=== PATIENT | male | born 1970 | race Caucasian/White ===

== ENCOUNTER 2021-10-23 11:23 | Emergency (ER) | payer OTHER ==
[~2021-10-23] VITALS: Ht 193 cm; Wt 127.0 kg
[~2021-10-23 11:23] MED LIST: PERCOCET 5-3251 EACH PO; VENTOLIN HFA18 GM INH; WELLBUTRIN XL300 MG PO
--- NOTE | 2021-10-24 17:16 | EKG ---
[facility] [address] [facility] [place] [address] Signed Normal sinus rhythm Incomplete right bundle branch block Borderline ECG No previous ECGs available Confirmed by CARLOS TINEO MD ([id number]) on 10/24/2021 5:15:45 PM Electronically Signed By: CARLOS TINEO MD 10/24/21 1716 PATIENT NAME: MARIBELL BAPTISTE Electrocardiogram DATE OF : 68 PHYSICIAN: CARLOS TINEO MD REPORT #: [id number] REPORT IS CONFIDENTIAL AND NOT TO BE RELEASED WITHOUT AUTHORIZATION
== END 2021-10-23 16:54 | disposition home or self-care (01) ==
LOC: ED 11:23
DX: U07.1 COVID-19 (principal); Z23 Encounter for immunization; F17.200 Nicotine dependence, unspecified, uncomplicated; Z79.899 Other long term (current) drug therapy
CPT/HCPCS: 71045; 80053; 83735; 83880; 84484; 85025; 93005; 93010; 99285-25; C9803; J7030; M0243; Q0244; U0003

== ENCOUNTER 2021-12-21 06:31 | Day surgery (SDC) | payer OTHER ==
[~2021-12-21] VITALS: Ht 193 cm; Wt 132.2 kg
--- NOTE | 2021-12-21 08:14 | NUR ---
12/21/21 0814 Becka,Sierra 0809 PT ARRIVED TO PACU ON 2L VIA NC, PT WAKES AND DENIES PAIN. VSS. PT EASILY FALLS BACK TO SLEEP.
--- NOTE | 2021-12-21 09:21 | OR ---
[facility] [address] [place], [place] [address] Signed DATE OF OPERATION: 12/21/2021 SURGEON: Zeeshan Mckinney MD PREOPERATIVE DIAGNOSIS: Screening. POSTOPERATIVE DIAGNOSES: 1. Minimal to moderate sigmoid diverticulosis. 2. A 7 mm pedunculated polyp at 30 cm (snare). PROCEDURE: Colonoscopy with snare polypectomy and hot biopsy. ESTIMATED BLOOD LOSS: None. INDICATIONS: Valerio is a 51-year-old obese gentleman, who is supposed to wear CPAP mask for his sleep apnea. However, he has not worn the CPAP mask in years. He had been sent to my office for his initial screening colonoscopy. He has no lower GI complaints. There is no family history of colon cancer or polyps. In the office, I had given him a pamphlet on colonoscopy. He understands the nature of the test along with the risks including, but not limited to gas bloating, crampy abdominal pain, bleeding, perforation requiring surgery, and missed diagnosis. We also discussed the need for the IV conscious sedation. He had expressed understanding and wished to proceed. PROCEDURE NOTE: Valerio was taken into our endoscopy suite and placed in the left lateral decubitus position. He was given 5 mg of Versed and 100 mcg of fentanyl to cover the case. He was between his sleep apnea and being awake and groaning in pain. Fortunately, he was technically easy to pass the scope. His prep was overall very good. However, he really would benefit significantly from monitored anesthesia care in the future. We had done a digital rectal exam and this was unremarkable. I could just feel a little of the base of his prostate. It is a little indurated, but I did not feel any nodules. The rest of the prostate I could not feel. The adult colonoscope had been introduced and advanced up into the cecum under direct visualization of the camera. Again, he was awake and moaning through much of that, but then he would quit breathing with just small amounts of Versed and fentanyl. Fortunately, he was easy to pass the scope and his prep was good. We could easily see the appendiceal orifice and the Electronically Signed By: ZEESHAN MCKINNEY MD 12/21/21 0921 PATIENT NAME: MARIBELL BAPTISTE OPERATIVE REPORT DATE OF : 68 REPORT #: [id number] PHYSICIAN: ZEESHAN MCKINNEY MD PCP: JEANIE FORREST PA-C REPORT IS CONFIDENTIAL AND NOT TO BE RELEASED WITHOUT AUTHORIZATION [facility] [address] [place], [place] [address] Signed ileocecal valve. We slowly withdrawn the scope. We had taken pictures throughout for photodocumentation. He does have diverticula in the sigmoid colon. They were moderate in size, moderate in number, and scattered about. We found a pedunculated polyp at 30 cm. We removed it in two pieces with the help of the snare and suctioned through the scope. We then took a separate biopsy of the base of the polyp and destroyed that completely. The rectum itself was unremarkable. Upon retroflexion of the scope, he has very little in the way of internal hemorrhoid tissue. After this, the gas was suctioned out and the colonoscope removed. Valerio tolerated the procedure overall well other than what we described above. RECOMMENDATIONS: I will see Valerio back in my office in 7 to 14 days to review his results. He should undergo monitored anesthesia care for future endoscopies. Zeeshan Mckinney MD ALB/MODL /[id number] cc: MD Jeanie Guillen PA-C Copies: ZEESHAN MCKINNEY MD, CHLOE K PA-C ~ Electronically Signed By: ZEESHAN MCKINNEY MD 12/21/21 0921 PATIENT NAME: MARIBELL BAPTISTE OPERATIVE REPORT DATE OF : 68 REPORT #: [id number] PHYSICIAN: ZEESHAN MCKINNEY MD PCP: JEANIE FORREST PA-C REPORT IS CONFIDENTIAL AND NOT TO BE RELEASED WITHOUT AUTHORIZATION
--- NOTE | 2021-12-22 15:55 | PATH ---
[facility] [address] [place], [place] [address] Signed SPECIMEN(S): A COLON POLYP AT 30 CM SPECIMEN(S): B BASE OF POLYP AT 30 CM SPECIMEN SOURCE: A. COLON POLYP AT 30 CM B. BASE OF POLYP AT 30 CM CLINICAL HISTORY: Screening colonoscopy. Colon polyp, diverticulosis FINAL PATHOLOGIC DIAGNOSIS: A. Colon, 30 cm, polypectomy: - Multiple fragments of tubular adenoma. - There is no evidence of high-grade dysplasia or malignancy. B. Base of polyp, 30 cm: - No significant histopathology. - There is no evidence of neoplasia. COMMENT: Regarding specimen B, the sections from the specimen are architecturally normal without crypt distortion. There is no acute or chronic inflammation. There are no abnormal infiltrates. There is no evidence of inflammatory, hyperplastic or adenomatous polyps. TWK:emh:C2NR MICROSCOPIC EXAMINATION: Histologic sections of all submitted blocks are examined by light microscopy. These findings, together with the gross examination, support the pathologic diagnosis. GROSS DESCRIPTION: Two specimens are received in two containers labeled with "JW." A. The specimen, labeled "JW, 1," and designated on the requisition "colon polypectomy at 30 cm," is received in formalin and consists of two fragments of pink-das tissue (0.3 cm in greatest dimension). The specimen is submitted entirely in cassette (A1). B. The specimen, labeled "JW, 2, base of polyp 30 cm," and designated on the requisition "polypectomy, base of polyp at 30 cm," is received in formalin and consists of one fragment of pink-das tissue (0.3 cm in greatest dimension). The specimen is submitted entirely in cassette (B1). PATIENT NAME: MARIBELL BAPTISTE PATHOLOGY DATE OF : 68 REPORT #: [id number] PHYSICIAN: RJA REESE PCP: KHUSHBOO FORREST PA-C REPORT IS CONFIDENTIAL AND NOT TO BE RELEASED WITHOUT AUTHORIZATION [facility] [address] [place] [id number] Signed AC (under the direct supervision of a pathologist) The Gross Description was prepared using a voice recognition system. The report was reviewed for accuracy; however, sound-alike word errors, addition and/or deletions may occur. If there is any question about this report, please contact Client Services. PERFORMING LABORATORY: The technical component [place] [address] (Fusion Operator: Tonie Mace MD; CLIA# [id number]). Professional interpretation was performed by [place] [address] (Fusion Operator: Tonie Mace MD; CLIA# [id number]). Diagnostician: Gordon Evans MD Pathologist Electronically Signed 12/22/2021 Copies: ~ PATIENT NAME: MARIBELL BAPTISTE PATHOLOGY DATE OF : 68 REPORT #: [id number] PHYSICIAN: RAJ REESE PCP: KHUSHBOO FORREST PA-C REPORT IS CONFIDENTIAL AND NOT TO BE RELEASED WITHOUT AUTHORIZATION
== END 2021-12-21 09:04 | disposition home or self-care (01) ==
LOC: DS 06:31 → OPS 06:31 → DS 07:30 → OPS 07:30
PROVIDERS: ATTEND Colon & Rectal Surgery
PROC: 0DBE8ZX Excision of Large Intestine, Via Natural or Artificial Opening Endoscopic, Diagnostic (ICD-10-PCS; 2021-12-21)
PROC: 0DBE8ZX Excision of Large Intestine, Via Natural or Artificial Opening Endoscopic, Diagnostic (ICD-10-PCS; principal; 2021-12-21 07:30)
DX: Z12.11 Encounter for screening for malignant neoplasm of colon (principal); D12.6 Benign neoplasm of colon, unspecified; K63.5 Polyp of colon; G47.33 Obstructive sleep apnea (adult) (pediatric); E66.9 Obesity, unspecified; Z68.35 Body mass index [BMI] 35.0-35.9, adult; M19.90 Unspecified osteoarthritis, unspecified site; F17.210 Nicotine dependence, cigarettes, uncomplicated
CPT/HCPCS: 99153; G0500; J2250; J3010; J7121

== ENCOUNTER 2023-01-08 11:41 | Emergency (ER) | payer OTHER ==
[~2023-01-08] VITALS: Ht 193 cm; Wt 134.7 kg
--- OUTSIDE RECORDS SUMMARY | 2023-01-08 11:42 | XMS ---
PreManage Notification: MARIBELL BAPTISTE Security Special Day Class Teacher Events No recent Security Events currently on file CRITERIA MET - PDMP CARE PROVIDERS KHUSHBOO FORREST Physician [employer] Animal Caretaker Current PHONE: [phone] [place] has no Care Guidelines for this patient. EWily VISIT COUNT (12 MO.) 1 ROCÍO Rhoades TOTAL 1 NOTE: Visits indicate total known visits. ED/UCC VISIT TRACKING (12 MO.) 01/08/2023 11:[address] [facility] OR TYPE: Emergency COMPLAINT: - ABDOMINAL PAIN INPATIENT VISIT TRACKING (12 MO.) No inpatient visits to display in this time frame [email or web address]
== END 2023-01-08 16:27 | disposition home or self-care (01) ==
LOC: ED 11:41
DX: R10.31 Right lower quadrant pain (principal); I10 Essential (primary) hypertension; F17.200 Nicotine dependence, unspecified, uncomplicated; Z79.899 Other long term (current) drug therapy
CPT/HCPCS: 36415; 74177; 80053; 81003; 83690; 85025; 99284-25; Q9967

== ENCOUNTER 2024-10-22 07:17 | Emergency (ER) | payer SELFPAY ==
[~2024-10-22] VITALS: Ht 193 cm; Wt 135.4 kg
[2024-10-22] MEDS ORDERED: NORVASC10 MG PO (07:29)
[2024-10-22] MEDS ORDERED: ACETAMINOPHEN 325 MG TAB PO ONE (08:00)
[2024-10-22 08:42] LABS: INFLUENZA B NAA NEGATIVE (NEGATIVE); RESPIRATORY SYNCYTIAL VIR NAA NEGATIVE (NEGATIVE)
[2024-10-22 09:16] VITALS: BP 136/80
== END 2024-10-22 09:16 | disposition home or self-care (01) ==
LOC: ED 07:17
PROVIDERS: Emergency Medicine
DX: J06.9 Acute upper respiratory infection, unspecified (principal); I10 Essential (primary) hypertension; F17.200 Nicotine dependence, unspecified, uncomplicated; Z79.899 Other long term (current) drug therapy
CPT/HCPCS: 71045; 87502; 99285-25; A9270; U0002

== ENCOUNTER 2025-08-20 22:23 | Emergency (ER) | payer OTHER ==
[~2025-08-20] VITALS: Ht 193 cm; Wt 133.0 kg
[~2025-08-20 22:23] MED LIST changes: +NORVASC10 MG PO
[2025-08-20 23:15] LABS: BASOPHILS 0.8 % (0.2-1.2); EOSINOPHILS 1.3 % (0.8-7.0); LYMPHOCYTES 32.4 % (21.8-53.1); MCH 31.3 PG (25.7-32.2); MCHC 33.8 g/dL (32.3-36.5); MCV 92.5 fL (79.0-92.2); MONOCYTES 7.9 % (5.3-12.2); NEUTROPHILS 57.4 % (34.0-67.9); RBC 4.67 M/uL (4.63-6.08)
[2025-08-20 23:39] LABS: ALT (SGPT) 44.0 U/L (14-59); AST (SGOT) 23.0 U/L (15-37); GLOMERULAR FILTRATION RATE,EST 108.0 mL/min (>60); PROTEIN, TOTAL 7.0 g/dL (6.4-8.2); UREA NITROGEN 13.0 mg/dL (7-18)
[2025-08-20] MEDS ORDERED: POTASSIUM CHLORIDE 10 MEQ TABCR PO ONE (23:45)
[2025-08-21] MEDS ORDERED: LASIX20 MG PO (00:02)
[2025-08-21 00:23] VITALS: BP 143/87
== END 2025-08-21 00:25 | disposition home or self-care (01) ==
LOC: ED 22:23
PROVIDERS: Family Medicine
DX: R60.0 Localized edema (principal); I10 Essential (primary) hypertension; F17.200 Nicotine dependence, unspecified, uncomplicated; Z79.899 Other long term (current) drug therapy
CPT/HCPCS: 36415; 80053; 82803; 83880; 84550; 85025; 85379; 93005; 93010; 99283; A9270